=== PATIENT | male | born 1955 | race Two or more races ===

== ENCOUNTER 2019-08-16 16:07 | Inpatient (IN) | payer OTHER ==
[~2019-08-16] VITALS: Ht 172.7 cm; Wt 123.4 kg
[2019-08-16] MEDS ORDERED: METHYLPREDNISOLONE SOD SUCC 125 MG/2 ML VIAL IV STA ×2 (16:22→16:47)
[2019-08-16] MEDS: ALBUTEROL (0.083%) 2.5MG/3ML NEB HHN STA ×2 (16:40→17:19)
[2019-08-16] MEDS: IPRATROPIUM BROMIDE (0.02%) 0.5MG/2.5ML NEB HHN STA ×2 (16:40→17:19)
[2019-08-16 16:45] LABS: BG BASE EXCESS 0.1 mmol/L (-2.0-2.0); BG CARBOXYHEMOGLOBIN 0.3 % (0.5-1.5); BG DEOXYHEMOGLOBIN 2.2 % (0.0-5.0); BG HCO3 ACT 21.2 mmol/L (22.0-26.0); BG OXYGEN SATURATION 97.8 % (92.0-98.5); BG OXYHEMOGLOBIN 97.5 % (94.0-97.0); BG PCO2 25.8 mmHg (35.0-45.0); BG PH 7.532 (7.350-7.450); BG PO2 100.8 mmHg (75.0-100.0); BG SAMPLE SITE RIGHT BRACHIAL; BG TOTAL HEMOGLOBIN 14.5 g/dL (12.0-18.0); BG VENT MODE NASAL CANNULA
[2019-08-16] MEDS ORDERED: SODIUM CHLORIDE 0.9% 1000ML BAG (SEPSIS BOLUS) IV ONE (16:45)
[2019-08-16 16:51] LABS: HEMATOCRIT. 44.3 % (42.0-52.0); HEMOGLOBIN. 14.6 g/dL (14.0-18.0); MEAN CORPUSCULAR HEMOGLOBIN 32.3 pg (28.0-32.0); MEAN PLATELET VOLUME 8.8 fl (7.4-10.4); PLATELET 273 x1000/uL (130-400); RED BLOOD CELL COUNT 4.52 mill/uL (4.7-6.1); RED CELL DISTRIBUTION WIDTH 16.7 % (11.6-14.6)
[2019-08-16 16:57] LABS: CHLORIDE 107 mEq/L (98-107); PARTIAL THROMBOPLASTIN TIME 22.6 sec (23.4-31.0); PROTHROMBIN TIME 10.6 sec (9.6-11.0)
[2019-08-16] MEDS ORDERED: LEVOFLOXACIN 750MG PREMIX 150 ML IV ONE (17:00)
[2019-08-16] MEDS ORDERED: MAGNESIUM 2 G PREMIX 50 ML IV ONE (17:00)
[2019-08-16] MEDS ORDERED: DIPHENHYDRAMINE 50MG/ML VIAL IV ONE (17:00)
[2019-08-16 17:15] LABS: PLATELET ESTIMATE NORMAL
[2019-08-16 18:06] LABS: ETHANOL BLOOD < 10 mg/dL
[2019-08-17] MEDS: MORPHINE SULFATE 4 MG/ML CPJ (NOT FOR IM USE) IV PRN ×4 (01:35→21:03)
[2019-08-17] MEDS ORDERED: ONDANSETRON HCL 4MG/2ML INJ IV ONE (02:00)
[2019-08-17] MEDS: DIPHENHYDRAMINE 50MG/ML VIAL IV PRN ×4 (04:00→21:42)
[2019-08-17 12:00] VITALS: BP 153/104
[2019-08-17] MEDS ORDERED: ALPRAZOLAM 0.5 MG TABLET PO SCH (12:15)
[2019-08-17] MEDS ORDERED: IPRATROPIUM/ALBUTEROL 0.5-3(2.5)MG/3ML NEB HHN PRN (12:30)
[2019-08-17 13:00] VITALS: BP 153/101
[2019-08-17] MEDS: CLOPIDOGREL 75MG TABLET PO SCH (13:03)
[2019-08-17] MEDS: APIXABAN 5 MG TABLET PO SCH ×2 (13:03→20:43)
[2019-08-17] MEDS: METHYLPREDNISOLONE SOD SUCC 40 MG/ML VIAL IV SCH ×2 (13:58→20:39)
[2019-08-17] MEDS ORDERED: DULO30CA2 MT (14:13)
[2019-08-17] MEDS ORDERED: DILT180C66 MT (14:14)
[2019-08-17] MEDS ORDERED: ATOR20TA MT ×2 (14:14→14:20)
[2019-08-17] MEDS ORDERED: OMEP40CA12 MT (14:16)
[2019-08-17] MEDS ORDERED: APIX5TAB MT (14:17)
[2019-08-17] MEDS ORDERED: FERR325T30 PO (14:17)
[2019-08-17] MEDS ORDERED: NITR0.4T SL (14:18)
[2019-08-17] MEDS ORDERED: CLOP75TA4 MT (14:19)
[2019-08-17] MEDS ORDERED: MULT-1203 PO (14:19)
[2019-08-17] MEDS ORDERED: LOSA50TA3 MT (14:21)
[2019-08-17] MEDS ORDERED: DEXTROSE 50% WATER 50ML SYRINGE IV PRN (14:30)
[2019-08-17] MEDS ORDERED: DOCUSATE SODIUM 100MG CAPSULE PO PRN (14:30)
[2019-08-17 16:00] VITALS: BP 124/83
[2019-08-17] MEDS: IPRATROPIUM/ALBUTEROL 0.5-3(2.5)MG/3ML NEB HHN SCH (16:55)
[2019-08-17] MEDS: BLOOD SUGAR DIAGNOSTIC STRIP TEST SCH ×2 (17:20→20:43)
[2019-08-17] MEDS: ONDANSETRON HCL 4MG/2ML INJ IV PRN (18:18)
[2019-08-17] MEDS: INSULIN LISPRO 100 UNITS/ML SUBCUT SCH ×2 (18:22→20:40)
[2019-08-17 20:00] VITALS: BP 124/79
[2019-08-17] MEDS: ALPRAZOLAM 0.5 MG TABLET PO SCH (20:44)
[2019-08-17] MEDS ORDERED: INSULIN NPH (HUMULIN-N) 100 UNITS/ML 3ML VIAL SUBCUT ONE (20:45)
[2019-08-17] MEDS ORDERED: INSULIN LISPRO 100 UNITS/ML SUBCUT NR (21:00)
[2019-08-17] MEDS: INSULIN GLARGINE UD 100 UNITS/ML SYR SUBCUT SCH (21:42)
[2019-08-18] VITALS: BP_SYST 102; BP_SYST 128; BP_DIAS 47; BP_DIAS 75
[2019-08-18] MEDS: IPRATROPIUM/ALBUTEROL 0.5-3(2.5)MG/3ML NEB HHN SCH ×4 (01:11→14:06)
[2019-08-18] MEDS: MORPHINE SULFATE 4 MG/ML CPJ (NOT FOR IM USE) IV PRN ×3 (03:15→17:21)
[2019-08-18 04:01] VITALS: BP 122/72
[2019-08-18] MEDS: METHYLPREDNISOLONE SOD SUCC 40 MG/ML VIAL IV SCH ×3 (05:21→21:25)
[2019-08-18] MEDS: DIPHENHYDRAMINE 50MG/ML VIAL IV PRN ×3 (05:22→21:56)
[2019-08-18] MEDS: ALPRAZOLAM 0.5 MG TABLET PO SCH ×3 (05:22→21:23)
[2019-08-18 06:05] LABS: HEMATOCRIT 36.7 % (42.0-52.0); HEMOGLOBIN 12.2 g/dL (14.0-18.0); MEAN CORPUSCULAR HEMOGLOBIN 32.6 pg (28.0-32.0); MEAN CORPUSCULAR VOLUME 97.6 fL (80.0-94.0); PLATELET 247 x1000/uL (130-400); RED BLOOD CELL COUNT 3.76 mill/uL (4.7-6.1); RED CELL DISTRIBUTION WIDTH 16.5 % (11.6-14.6)
[2019-08-18] MEDS: BLOOD SUGAR DIAGNOSTIC STRIP TEST SCH ×4 (06:09→21:12)
[2019-08-18 06:49] LABS: CHLORIDE 111 mEq/L (98-107)
[2019-08-18 08:04] VITALS: BP 132/82
[2019-08-18] MEDS: APIXABAN 5 MG TABLET PO SCH ×2 (08:37→17:39)
[2019-08-18] MEDS: AMLODIPINE 5MG TABLET PO SCH (08:37)
[2019-08-18] MEDS: CLOPIDOGREL 75MG TABLET PO SCH (08:37)
[2019-08-18] MEDS: INSULIN LISPRO 100 UNITS/ML SUBCUT SCH ×4 (08:40→21:16)
[2019-08-18] MEDS: INSULIN GLARGINE UD 100 UNITS/ML SYR SUBCUT SCH ×2 (09:51→21:29)
[2019-08-18] MEDS: ONDANSETRON HCL 4MG/2ML INJ IV PRN ×2 (11:03→17:50)
[2019-08-18 11:58] VITALS: BP 130/82
[2019-08-18 16:29] VITALS: BP 122/76
[2019-08-18 20:00] VITALS: BP 105/76
[2019-08-19] MEDS: ONDANSETRON HCL 4MG/2ML INJ IV PRN ×4 (00:08→18:22)
[2019-08-19] MEDS: MORPHINE SULFATE 4 MG/ML CPJ (NOT FOR IM USE) IV PRN ×4 (00:08→18:22)
[2019-08-19 00:45] VITALS: BP 136/85
[2019-08-19 04:00] VITALS: BP 122/83
[2019-08-19] MEDS: DIPHENHYDRAMINE 50MG/ML VIAL IV PRN ×3 (04:50→22:12)
[2019-08-19] MEDS: METHYLPREDNISOLONE SOD SUCC 40 MG/ML VIAL IV SCH ×3 (06:38→21:22)
[2019-08-19] MEDS: ALPRAZOLAM 0.5 MG TABLET PO SCH ×3 (06:38→21:23)
[2019-08-19] MEDS: BLOOD SUGAR DIAGNOSTIC STRIP TEST SCH ×4 (07:31→21:22)
[2019-08-19] MEDS: APIXABAN 5 MG TABLET PO SCH ×2 (08:37→17:40)
[2019-08-19] MEDS: AMLODIPINE 5MG TABLET PO SCH (08:37)
[2019-08-19] MEDS: CLOPIDOGREL 75MG TABLET PO SCH (08:37)
[2019-08-19] MEDS: INSULIN LISPRO 100 UNITS/ML SUBCUT SCH ×4 (08:48→21:25)
[2019-08-19] MEDS: IPRATROPIUM/ALBUTEROL 0.5-3(2.5)MG/3ML NEB HHN SCH ×4 (09:03→23:21)
[2019-08-19] MEDS: INSULIN GLARGINE UD 100 UNITS/ML SYR SUBCUT SCH ×2 (11:01→21:25)
[2019-08-19 12:00] VITALS: BP 125/74
[2019-08-19 16:00] VITALS: BP 124/76
[2019-08-19 20:41] VITALS: BP 137/86
[2019-08-20 00:32] VITALS: BP 123/75
[2019-08-20] MEDS: ONDANSETRON HCL 4MG/2ML INJ IV PRN ×4 (01:13→21:47)
[2019-08-20] MEDS: MORPHINE SULFATE 4 MG/ML CPJ (NOT FOR IM USE) IV PRN ×4 (01:32→21:47)
[2019-08-20 04:00] VITALS: BP 143/73
[2019-08-20] MEDS: DIPHENHYDRAMINE 50MG/ML VIAL IV PRN ×3 (04:16→17:13)
[2019-08-20] MEDS: IPRATROPIUM/ALBUTEROL 0.5-3(2.5)MG/3ML NEB HHN SCH ×6 (04:35→23:44)
[2019-08-20] MEDS: METHYLPREDNISOLONE SOD SUCC 40 MG/ML VIAL IV SCH ×3 (06:08→21:47)
[2019-08-20] MEDS: ALPRAZOLAM 0.5 MG TABLET PO SCH ×3 (06:08→21:47)
[2019-08-20] MEDS: BLOOD SUGAR DIAGNOSTIC STRIP TEST SCH ×4 (06:26→20:44)
[2019-08-20] MEDS: INSULIN LISPRO 100 UNITS/ML SUBCUT SCH ×4 (06:53→21:46)
[2019-08-20 07:59] VITALS: BP 145/88
[2019-08-20] MEDS: APIXABAN 5 MG TABLET PO SCH ×2 (08:21→17:13)
[2019-08-20] MEDS: AMLODIPINE 5MG TABLET PO SCH (08:21)
[2019-08-20] MEDS: CLOPIDOGREL 75MG TABLET PO SCH (08:21)
[2019-08-20] MEDS: INSULIN GLARGINE UD 100 UNITS/ML SYR SUBCUT SCH ×2 (10:02→22:21)
[2019-08-20 12:00] VITALS: BP 152/93
[2019-08-20 16:00] VITALS: BP 133/86
[2019-08-20] MEDS: GUAIFENESIN 200MG/10ML SUGAR FREE UDC PO PRN (17:13)
[2019-08-20 20:21] VITALS: BP 122/86
[2019-08-21 00:10] VITALS: BP 148/75
[2019-08-21] MEDS: DIPHENHYDRAMINE 50MG/ML VIAL IV PRN ×3 (01:52→18:11)
[2019-08-21 04:00] VITALS: BP 135/83
[2019-08-21] MEDS: MORPHINE SULFATE 4 MG/ML CPJ (NOT FOR IM USE) IV PRN ×3 (05:11→17:26)
[2019-08-21] MEDS: ONDANSETRON HCL 4MG/2ML INJ IV PRN ×3 (05:11→17:26)
[2019-08-21] MEDS: METHYLPREDNISOLONE SOD SUCC 40 MG/ML VIAL IV SCH ×2 (05:11→13:56)
[2019-08-21] MEDS: ALPRAZOLAM 0.5 MG TABLET PO SCH ×3 (05:11→21:43)
[2019-08-21] MEDS: BLOOD SUGAR DIAGNOSTIC STRIP TEST SCH ×4 (06:46→20:48)
[2019-08-21] MEDS: IPRATROPIUM/ALBUTEROL 0.5-3(2.5)MG/3ML NEB HHN SCH ×3 (07:57→20:09)
[2019-08-21 08:00] VITALS: BP 141/89
[2019-08-21] MEDS: AMLODIPINE 5MG TABLET PO SCH (09:13)
[2019-08-21] MEDS: GUAIFENESIN 200MG/10ML SUGAR FREE UDC PO PRN ×2 (09:13→17:26)
[2019-08-21] MEDS: APIXABAN 5 MG TABLET PO SCH ×2 (09:14→17:25)
[2019-08-21] MEDS: CLOPIDOGREL 75MG TABLET PO SCH (09:14)
[2019-08-21] MEDS: INSULIN LISPRO 100 UNITS/ML SUBCUT SCH ×4 (09:18→21:40)
[2019-08-21] MEDS: INSULIN GLARGINE UD 100 UNITS/ML SYR SUBCUT SCH ×2 (10:19→21:41)
[2019-08-21 12:00] VITALS: BP 127/86
[2019-08-21 12:52] LABS: HEMOGLOBIN 13.5 g/dL (14.0-18.0); MEAN CORPUSCULAR HEMOGLOBIN 32.3 pg (28.0-32.0); MEAN CORPUSCULAR VOLUME 98.2 fL (80.0-94.0); PLATELET 213 x1000/uL (130-400); RED BLOOD CELL COUNT 4.18 mill/uL (4.7-6.1); RED CELL DISTRIBUTION WIDTH 16.5 % (11.6-14.6)
[2019-08-21 13:26] LABS: CHLORIDE 105 mEq/L (98-107)
[2019-08-21 16:00] VITALS: BP 100/72
[2019-08-21] MEDS ORDERED: HYDROCODONE/ACETAMINOPHEN 5/325MG TABLET PO PRN (20:30)
[2019-08-21 20:47] VITALS: BP 134/87
[2019-08-21 22:41] LABS: *AMPHETAMINES SCREEN URINE NEGATIVE (NEGATIVE)
[2019-08-21 22:42] LABS: *BARBITURATES SCREEN URINE NEGATIVE (NEGATIVE); *BENZODIAZEPINES SCREEN URINE PRESUMTIVE POSITIVE (NEGATIVE); *COCAINE SCREEN URINE NEGATIVE (NEGATIVE); CANNABINOID URINE SCREEN NEGATIVE (NEGATIVE); METHADONE URINE SCREEN NEGATIVE (NEGATIVE); OPIATES URINE SCREEN PRESUMTIVE POSITIVE (NEGATIVE); PHENCYCLIDINE URINE SCREEN NEGATIVE (NEGATIVE)
[2019-08-22] VITALS (7 sets, daily range): BP systolic 117–154; BP diastolic 74–90
[2019-08-22] MEDS: BLOOD SUGAR DIAGNOSTIC STRIP TEST SCH ×6 (00:16→20:20)
[2019-08-22] MEDS: INSULIN LISPRO 100 UNITS/ML SUBCUT SCH ×6 (00:26→20:25)
[2019-08-22] MEDS: ONDANSETRON HCL 4MG/2ML INJ IV PRN ×4 (00:27→20:23)
[2019-08-22] MEDS: MORPHINE SULFATE 4 MG/ML CPJ (NOT FOR IM USE) IV PRN ×5 (00:28→20:24)
[2019-08-22] MEDS: IPRATROPIUM/ALBUTEROL 0.5-3(2.5)MG/3ML NEB HHN SCH ×3 (01:33→15:43)
[2019-08-22] MEDS: METHYLPREDNISOLONE SOD SUCC 40 MG/ML VIAL IV SCH ×2 (02:51→13:51)
[2019-08-22] MEDS: GUAIFENESIN 200MG/10ML SUGAR FREE UDC PO PRN ×2 (03:06→22:07)
[2019-08-22] MEDS: DIPHENHYDRAMINE 50MG/ML VIAL IV PRN ×3 (03:06→22:07)
[2019-08-22] MEDS: ALPRAZOLAM 0.5 MG TABLET PO SCH ×3 (06:14→22:07)
[2019-08-22 07:16] LABS: HEMATOCRIT 40.9 % (42.0-52.0); HEMOGLOBIN 13.7 g/dL (14.0-18.0); MEAN CORPUSCULAR HEMOGLOBIN 32.6 pg (28.0-32.0); MEAN CORPUSCULAR VOLUME 97.1 fL (80.0-94.0); PLATELET 206 x1000/uL (130-400); RED BLOOD CELL COUNT 4.22 mill/uL (4.7-6.1); RED CELL DISTRIBUTION WIDTH 16.7 % (11.6-14.6)
[2019-08-22 07:33] LABS: CHLORIDE 105 mEq/L (98-107)
[2019-08-22] MEDS: APIXABAN 5 MG TABLET PO SCH ×2 (08:09→17:13)
[2019-08-22] MEDS: CLOPIDOGREL 75MG TABLET PO SCH (08:11)
[2019-08-22] MEDS: AMLODIPINE 5MG TABLET PO SCH (08:12)
[2019-08-22] MEDS: INSULIN GLARGINE UD 100 UNITS/ML SYR SUBCUT SCH ×2 (09:55→22:05)
[2019-08-22] MEDS: CEFTRIAXONE 1,000 MG in DEXTROSE 5% WATER 50 ML IV SCH (15:47)
[2019-08-23] MEDS: BLOOD SUGAR DIAGNOSTIC STRIP TEST SCH ×5 (00:01→16:22)
[2019-08-23] MEDS: INSULIN LISPRO 100 UNITS/ML SUBCUT SCH ×6 (00:12→22:28)
[2019-08-23] MEDS ORDERED: VANCOMYCIN 2,000 MG in DEXT 5% WATER 500 ML IV SCH (02:00)
[2019-08-23] MEDS: METHYLPREDNISOLONE SOD SUCC 40 MG/ML VIAL IV SCH ×2 (02:47→13:16)
[2019-08-23 04:09] VITALS: BP 125/88
[2019-08-23] MEDS: MORPHINE SULFATE 4 MG/ML CPJ (NOT FOR IM USE) IV PRN ×4 (04:16→22:42)
[2019-08-23] MEDS: ONDANSETRON HCL 4MG/2ML INJ IV PRN ×2 (04:16→10:30)
[2019-08-23] MEDS: DIPHENHYDRAMINE 50MG/ML VIAL IV PRN ×3 (05:30→18:36)
[2019-08-23 08:10] VITALS: BP 145/91
[2019-08-23] MEDS: IPRATROPIUM/ALBUTEROL 0.5-3(2.5)MG/3ML NEB HHN SCH ×2 (08:10→21:35)
[2019-08-23] MEDS: AMLODIPINE 5MG TABLET PO SCH (08:38)
[2019-08-23] MEDS: APIXABAN 5 MG TABLET PO SCH ×2 (08:38→17:01)
[2019-08-23] MEDS: CLOPIDOGREL 75MG TABLET PO SCH (08:38)
[2019-08-23] MEDS: INSULIN GLARGINE UD 100 UNITS/ML SYR SUBCUT SCH ×2 (09:09→22:27)
[2019-08-23 11:59] VITALS: BP_SYST 116
[2019-08-23] MEDS ORDERED: ALPRAZOLAM 0.5 MG TABLET PO PRN (13:15)
[2019-08-23] MEDS: CEFTRIAXONE 1,000 MG in DEXTROSE 5% WATER 50 ML IV SCH (13:16)
[2019-08-23 16:00] VITALS: BP 136/94
[2019-08-23] MEDS: VANCOMYCIN 1250MG in DEXTROSE 5% WATER 250ML IV SCH (17:01)
[2019-08-23 20:43] VITALS: BP 124/80
[2019-08-23 21:25] LABS: HEMATOCRIT. 43.8 % (42.0-52.0); HEMOGLOBIN. 14.7 g/dL (14.0-18.0); MEAN CORPUSCULAR VOLUME 98.1 fL (80.0-94.0); MEAN PLATELET VOLUME 9.6 fl (7.4-10.4); PLATELET 202 x1000/uL (130-400); RED BLOOD CELL COUNT 4.46 mill/uL (4.7-6.1); RED CELL DISTRIBUTION WIDTH 16.7 % (11.6-14.6)
[2019-08-23 21:55] LABS: PLATELET ESTIMATE NORMAL
[2019-08-23 22:07] LABS: CHLORIDE 105 mEq/L (98-107)
[2019-08-24] VITALS (7 sets, daily range): BP systolic 121–140; BP diastolic 79–89
[2019-08-24] MEDS: ALPRAZOLAM 0.5 MG TABLET PO PRN ×3 (01:35→21:00)
[2019-08-24] MEDS: DIPHENHYDRAMINE 50MG/ML VIAL IV PRN ×4 (01:35→21:13)
[2019-08-24] MEDS: METHYLPREDNISOLONE SOD SUCC 40 MG/ML VIAL IV SCH ×2 (02:00→14:24)
[2019-08-24] MEDS: IPRATROPIUM/ALBUTEROL 0.5-3(2.5)MG/3ML NEB HHN SCH ×4 (02:51→21:00)
[2019-08-24] MEDS: BLOOD SUGAR DIAGNOSTIC STRIP TEST SCH ×5 (04:00→20:00)
[2019-08-24] MEDS: INSULIN LISPRO 100 UNITS/ML SUBCUT SCH ×5 (04:00→21:52)
[2019-08-24] MEDS: VANCOMYCIN 1250MG in DEXTROSE 5% WATER 250ML IV SCH (06:32)
[2019-08-24] MEDS: ONDANSETRON HCL 4MG/2ML INJ IV PRN ×2 (06:57→22:53)
[2019-08-24] MEDS: MORPHINE SULFATE 4 MG/ML CPJ (NOT FOR IM USE) IV PRN ×4 (08:05→21:00)
[2019-08-24] MEDS: CLOPIDOGREL 75MG TABLET PO SCH (08:42)
[2019-08-24] MEDS: AMLODIPINE 5MG TABLET PO SCH (08:43)
[2019-08-24] MEDS: APIXABAN 5 MG TABLET PO SCH ×2 (08:43→17:44)
[2019-08-24] MEDS: INSULIN GLARGINE UD 100 UNITS/ML SYR SUBCUT SCH (09:52)
[2019-08-24] MEDS ORDERED: CEFTRIAXONE 1 G PREMIX 50 ML IV SCH (14:00)
[2019-08-24 14:12] LABS: CHLORIDE 104 mEq/L (98-107)
[2019-08-24] MEDS ORDERED: VANCOMYCIN 1 G PREMIX 200 ML IV SCH (16:00)
[2019-09-14] MEDS ORDERED: MECL-115 PO (14:05)
[2019-09-14] MEDS ORDERED: DILT60TA35 PO (14:05)
== END 2019-08-24 23:25 | disposition short-term general hospital (02) | DRG 189 ==
LOC: ER 16:07 → 6WST 19:51 → EDBEDREQSVC 19:55 → EDBEDREQTM 19:55 → EDBEDREQ 19:55 → EDBEDREQSVC 08-17 09:19 → ENRESERV 08-17 11:06
PROVIDERS: ADMIT Internal Medicine; ATTEND Internal Medicine
PROC: 5A09357 Assistance with Respiratory Ventilation, Less than 24 Consecutive Hours, Continuous Positive Airway Pressure (ICD-10-PCS; principal; 2019-08-18)
DX: J96.20 Acute and chronic respiratory failure, unspecified whether with hypoxia or hypercapnia (principal); J45.901 Unspecified asthma with (acute) exacerbation; E66.2 Morbid (severe) obesity with alveolar hypoventilation; Z68.41 Body mass index [BMI] 40.0-44.9, adult; L03.119 Cellulitis of unspecified part of limb; R65.10 Systemic inflammatory response syndrome (SIRS) of non-infectious origin without acute organ dysfunction; K57.90 Diverticulosis of intestine, part unspecified, without perforation or abscess without bleeding; K64.9 Unspecified hemorrhoids; J44.9 Chronic obstructive pulmonary disease, unspecified; I25.10 Atherosclerotic heart disease of native coronary artery without angina pectoris; I10 Essential (primary) hypertension; E11.65 Type 2 diabetes mellitus with hyperglycemia; F41.9 Anxiety disorder, unspecified; G89.29 Other chronic pain; I25.2 Old myocardial infarction; Z95.5 Presence of coronary angioplasty implant and graft; Z79.01 Long term (current) use of anticoagulants; Z79.899 Other long term (current) drug therapy
CPT/HCPCS: 36415; 36600; 71045; 73700; 80048; 80053; 80202; 80305; 80320; 82375; 82805; 82962; 83605; 83880; 84484; 85025; 85027; 87804; 93005; 93923; 93970; 94640; 94644; 94660; 96365; 99291; J0696; J1200; J1815; J1956; J2270; J2405; J2920; J2930; J3370; J3475; J7030; J7060; G0480

== ENCOUNTER 2019-12-04 23:07 | Inpatient (IN) | payer OTHER ==
[~2019-12-04] VITALS: Ht 167.6 cm; Wt 121.1 kg
[~2019-12-04 23:07] MED LIST: APIX5TAB MT; ATOR20TA MT; CLOP75TA4 MT; DILT180C66 MT; DILT60TA35 PO; DULO30CA2 MT; FERR325T30 PO; MECL-115 PO; MULT-1203 PO; NITR0.4T SL; OMEP40CA12 MT
[2019-12-04] MEDS ORDERED: ONDANSETRON HCL 4MG/2ML INJ IV STA (23:46)
[2019-12-04] MEDS ORDERED: MORPHINE SULFATE 4 MG/ML CPJ (NOT FOR IM USE) IV STA (23:46)
[2019-12-05] MEDS ORDERED: NITROGLYCERIN OINT 1GM/INCH UDPKT TD ONE
[2019-12-05 00:09] LABS: BASOPHILS % 0.9 % (0.0-2.0); EOSINOPHILS % 3.2 % (0.0-5.0); HEMATOCRIT. 39.4 % (42.0-52.0); HEMOGLOBIN. 13.3 g/dL (14.0-18.0); LYMPHOCYTES % 35.8 % (20.0-50.0); MEAN CORPUSCULAR HEMOGLOBIN 31.2 pg (28.0-32.0); MEAN CORPUSCULAR VOLUME 92.4 fL (80.0-94.0); MONOCYTES % 4.5 % (2.0-8.0); NEUTROPHILS % 55.6 % (40.0-76.0); PLATELET 344 x1000/uL (130-400); RED BLOOD CELL COUNT 4.26 mill/uL (4.7-6.1); RED CELL DISTRIBUTION WIDTH 14.9 % (11.6-14.6)
[2019-12-05 00:14] LABS: CHLORIDE 106 mEq/L (98-107)
[2019-12-05 00:15] LABS: PROTHROMBIN TIME 10.6 sec (9.6-11.0)
[2019-12-05] MEDS ORDERED: MORPHINE SULFATE 4 MG/ML CPJ (NOT FOR IM USE) IV ONE (02:15)
[2019-12-05] MEDS ORDERED: ONDANSETRON HCL 4MG/2ML INJ IV ONE (02:15)
[2019-12-05] MEDS: MORPHINE SULFATE 2 MG/ML CPJ (NOT FOR IM USE) IV PRN ×5 (06:53→23:21)
[2019-12-05] MEDS: ONDANSETRON HCL 4MG/2ML INJ IV PRN ×4 (10:27→23:21)
[2019-12-05] MEDS ORDERED: CLONIDINE 0.1MG TABLET PO PRN (11:30)
[2019-12-05] MEDS ORDERED: NA PHOS,M-B/NA PHOS,DI-BA ENEMA 118ML PR PRN (11:30)
[2019-12-05] MEDS ORDERED: ACETAMINOPHEN 325MG TABLET PO PRN (11:30)
[2019-12-05] MEDS ORDERED: ACETAMINOPHEN 650MG SUPP PR PRN (11:30)
[2019-12-05] MEDS ORDERED: DOCUSATE SODIUM 100MG CAPSULE PO PRN (11:30)
[2019-12-05] MEDS ORDERED: GUAIFENESIN 200MG/10ML SUGAR FREE UDC PO PRN (11:30)
[2019-12-05] MEDS ORDERED: MAGNESIUM/ALUMINUM HYDROXIDE/SIMETHICONE 30ML UDC PO PRN (11:30)
[2019-12-05] MEDS ORDERED: DEXTROSE 50% WATER 50ML SYRINGE IV PRN (11:30)
[2019-12-05] MEDS ORDERED: ONDANSETRON HCL 4MG/2ML INJ IV PRN (11:30)
[2019-12-05] MEDS ORDERED: MECLIZINE 25MG TABLET PO PRN (11:30)
[2019-12-05] MEDS ORDERED: LORAZEPAM 2MG/ML CPJ IV PRN (11:30)
[2019-12-05] MEDS ORDERED: IPRATROPIUM/ALBUTEROL 0.5-3(2.5)MG/3ML NEB NEB PRN (11:30)
[2019-12-05] MEDS: BLOOD SUGAR DIAGNOSTIC STRIP TEST SCH ×2 (11:41→21:00)
[2019-12-05] MEDS: INSULIN LISPRO 100 UNITS/ML SUBCUT SCH ×2 (11:43→21:00)
[2019-12-05] MEDS ORDERED: METHYLPREDNISOLONE SOD SUCC 40 MG/ML VIAL IV SCH (12:00)
[2019-12-05] MEDS: DILTIAZEM HCL 60MG TABLET PO SCH (12:10)
[2019-12-05] MEDS: FERROUS SULFATE 325MG TABLET PO SCH (12:10)
[2019-12-05 13:35] LABS: CREATINE KINASE MB FRACTION 3.2 ng/mL (0.5-3.6)
[2019-12-05] MEDS ORDERED: POTASSIUM CHLORIDE 20MEQ TABLET SR PO SCH (13:45)
[2019-12-05] MEDS ORDERED: APIXABAN 5 MG TABLET PO SCH (17:00)
[2019-12-05] MEDS: DIPHENHYDRAMINE 50MG/ML VIAL IV PRN ×2 (17:43→23:21)
[2019-12-05] MEDS ORDERED: ENOXAPARIN 80MG/0.8ML SYR SUBCUT SCH (18:00)
[2019-12-05 19:44] LABS: CLARITY URINE CLEAR (CLEAR); COLOR URINE YELLOW (YELLOW); KETONES URINE NEGATIVE (NEGATIVE); LEUKOCYTE ESTERASE URINE NEGATIVE (NEGATIVE); NITRITE URINE NEGATIVE (NEGATIVE); OCCULT BLOOD URINE NEGATIVE (NEGATIVE); PROTEIN URINE NEGATIVE (NEGATIVE); SPECIFIC GRAVITY URINE 1.014 (1.005-1.030); UROBILINOGEN URINE 0.2 E.U./dL (0.2-1.0)
[2019-12-05] MEDS: ATORVASTATIN CALCIUM 20MG TABLET PO SCH (21:15)
[2019-12-05] MEDS: CLOPIDOGREL 75MG TABLET PO SCH (21:15)
[2019-12-05 22:05] VITALS: BP 130/78
[2019-12-05 23:50] LABS: CREATINE KINASE 81 IU/L (39-308)
[2019-12-06] VITALS (16 sets, daily range): BP systolic 113–154; BP diastolic 55–96
[2019-12-06 00:05] LABS: CREATINE KINASE MB FRACTION 3.1 ng/mL (0.5-3.6)
[2019-12-06] MEDS: MORPHINE SULFATE 2 MG/ML CPJ (NOT FOR IM USE) IV PRN ×2 (05:24→09:55)
[2019-12-06] MEDS: DIPHENHYDRAMINE 50MG/ML VIAL IV PRN ×4 (05:44→22:04)
[2019-12-06] MEDS: ONDANSETRON HCL 4MG/2ML INJ IV PRN ×3 (05:44→22:04)
[2019-12-06] MEDS: OMEPRAZOLE 20MG CAPSULE EXTENDED RELEASE PO SCH (05:50)
[2019-12-06] MEDS ORDERED: SODIUM CHLORIDE 0.45% 1,000 ML IV SCH (06:00)
[2019-12-06] MEDS: DILTIAZEM HCL 60MG TABLET PO SCH ×4 (06:00→17:57)
[2019-12-06 06:56] LABS: BASOPHILS % 0.8 % (0.0-2.0); EOSINOPHILS % 5.6 % (0.0-5.0); HEMATOCRIT. 36.7 % (42.0-52.0); HEMOGLOBIN. 12.3 g/dL (14.0-18.0); LYMPHOCYTES % 34.5 % (20.0-50.0); MEAN CORPUSCULAR HEMOGLOBIN 31.1 pg (28.0-32.0); MEAN CORPUSCULAR VOLUME 92.4 fL (80.0-94.0); MEAN PLATELET VOLUME 8.1 fl (7.4-10.4); MONOCYTES % 3.2 % (2.0-8.0); NEUTROPHILS % 55.9 % (40.0-76.0); PLATELET 304 x1000/uL (130-400); RED BLOOD CELL COUNT 3.98 mill/uL (4.7-6.1); RED CELL DISTRIBUTION WIDTH 14.2 % (11.6-14.6)
[2019-12-06] MEDS: INSULIN LISPRO 100 UNITS/ML SUBCUT SCH ×4 (07:20→20:47)
[2019-12-06] MEDS: BLOOD SUGAR DIAGNOSTIC STRIP TEST SCH ×4 (07:26→20:46)
[2019-12-06] MEDS ORDERED: LIDOCAINE HCL 1% 20ML VIAL (Pyxis) INJ ONE (07:54)
[2019-12-06] MEDS ORDERED: FENTANYL CITRATE/PF 50MCG/ML 2ML VIAL ONE (07:55)
[2019-12-06] MEDS ORDERED: MIDAZOLAM HCL 2 MG/2 ML VIAL ONE ×2 (07:55→08:30)
[2019-12-06] MEDS ORDERED: IODIXANOL 320MG/ML 100 ML BOTTLE IV ONE (07:55)
[2019-12-06 08:08] LABS: CHLORIDE 106 mEq/L (98-107)
[2019-12-06 08:16] LABS: LDL CHOLESTEROL 64 mg/dL (5-100)
[2019-12-06 08:17] LABS: HDL CHOLESTEROL 35 mg/dL (40-59)
[2019-12-06 08:18] LABS: T4 FREE 0.91 ng/dL (0.76-1.46)
[2019-12-06] MEDS ORDERED: ATROPINE SULFATE 1MG/10ML SYR IV PRN (08:45)
[2019-12-06] MEDS ORDERED: ACETAMINOPHEN 325MG TABLET PO PRN (08:45)
[2019-12-06] MEDS ORDERED: ASPIRIN 81MG EC TABLET PO SCH (09:00)
[2019-12-06] MEDS: SODIUM CHLORIDE 0.45% 1,000 ML IV SCH ×2 (09:43→16:45)
[2019-12-06] MEDS: FERROUS SULFATE 325MG TABLET PO SCH ×3 (09:54→17:22)
[2019-12-06] MEDS: DULOXETINE HCL 30MG DR CAPSULE PO SCH (09:54)
[2019-12-06] MEDS: CLOPIDOGREL 75MG TABLET PO SCH ×2 (09:54→17:22)
[2019-12-06] MEDS ORDERED: METHYLPREDNISOLONE SOD SUCC 40 MG/ML VIAL IV NR (12:45)
[2019-12-06] MEDS: BUDESONIDE 0.5MG/2ML NEB HHN SCH (13:15)
[2019-12-06] MEDS: IPRATROPIUM/ALBUTEROL 0.5-3(2.5)MG/3ML NEB NEB SCH (13:15)
[2019-12-06] MEDS: APIXABAN 5 MG TABLET PO SCH (17:23)
[2019-12-06] MEDS: HYDROCODONE/ACETAMINOPHEN 5/325MG TABLET PO PRN (17:56)
[2019-12-06] MEDS: ATORVASTATIN CALCIUM 20MG TABLET PO SCH (20:46)
[2019-12-07] VITALS (8 sets, daily range): BP systolic 105–137; BP diastolic 51–79
[2019-12-07] MEDS: SODIUM CHLORIDE 0.45% 1,000 ML IV SCH ×2 (00:31→08:45)
[2019-12-07] MEDS: DILTIAZEM HCL 60MG TABLET PO SCH ×3 (00:31→11:45)
[2019-12-07] MEDS: HYDROCODONE/ACETAMINOPHEN 5/325MG TABLET PO PRN ×2 (02:45→09:06)
[2019-12-07] MEDS: BLOOD SUGAR DIAGNOSTIC STRIP TEST SCH ×2 (05:59→11:33)
[2019-12-07] MEDS: OMEPRAZOLE 20MG CAPSULE EXTENDED RELEASE PO SCH (05:59)
[2019-12-07] MEDS: INSULIN LISPRO 100 UNITS/ML SUBCUT SCH ×2 (06:23→11:33)
[2019-12-07 06:43] LABS: BASOPHILS % 0.2 % (0.0-2.0); HEMOGLOBIN. 12.3 g/dL (14.0-18.0); LYMPHOCYTES % 28.7 % (20.0-50.0); MEAN CORPUSCULAR HEMOGLOBIN 30.3 pg (28.0-32.0); MEAN CORPUSCULAR VOLUME 91.6 fL (80.0-94.0); MEAN PLATELET VOLUME 8.5 fl (7.4-10.4); MONOCYTES % 3.3 % (2.0-8.0); NEUTROPHILS % 67.8 % (40.0-76.0); PLATELET 339 x1000/uL (130-400); RED BLOOD CELL COUNT 4.04 mill/uL (4.7-6.1); RED CELL DISTRIBUTION WIDTH 14.3 % (11.6-14.6)
[2019-12-07 06:53] LABS: CHLORIDE 107 mEq/L (98-107)
[2019-12-07] MEDS: FERROUS SULFATE 325MG TABLET PO SCH ×2 (07:20→11:45)
[2019-12-07] MEDS: APIXABAN 5 MG TABLET PO SCH (09:05)
[2019-12-07] MEDS: CLOPIDOGREL 75MG TABLET PO SCH (09:05)
[2019-12-07] MEDS: DIPHENHYDRAMINE 50MG/ML VIAL IV PRN (09:05)
[2019-12-07] MEDS: DULOXETINE HCL 30MG DR CAPSULE PO SCH (09:05)
[2019-12-07] MEDS: BUDESONIDE 0.5MG/2ML NEB HHN SCH (09:45)
[2019-12-07] MEDS: IPRATROPIUM/ALBUTEROL 0.5-3(2.5)MG/3ML NEB NEB SCH (09:46)
== END 2019-12-07 14:14 | disposition home or self-care (01) | DRG 287 ==
LOC: ER 23:07 → MICUSO 12-05 01:24 → EDBEDREQ 12-05 01:35 → EDBEDREQTM 12-05 01:35 → EDBEDREQDT 12-05 01:35 → MICUSO 12-05 17:38 → 3WST 12-05 21:27
PROVIDERS: ADMIT Internal Medicine; ATTEND Internal Medicine
PROC: B2111ZZ Fluoroscopy of Multiple Coronary Arteries using Low Osmolar Contrast (ICD-10-PCS; principal; 2019-12-06)
PROC: 4A023N7 Measurement of Cardiac Sampling and Pressure, Left Heart, Percutaneous Approach (ICD-10-PCS; 2019-12-06)
PROC: B2151ZZ Fluoroscopy of Left Heart using Low Osmolar Contrast (ICD-10-PCS; 2019-12-06)
DX: I25.10 Atherosclerotic heart disease of native coronary artery without angina pectoris (principal); J45.901 Unspecified asthma with (acute) exacerbation; E66.2 Morbid (severe) obesity with alveolar hypoventilation; I48.92 Unspecified atrial flutter; Z68.41 Body mass index [BMI] 40.0-44.9, adult; R07.9 Chest pain, unspecified; I10 Essential (primary) hypertension; I25.9 Chronic ischemic heart disease, unspecified; K57.90 Diverticulosis of intestine, part unspecified, without perforation or abscess without bleeding; G89.29 Other chronic pain; D64.9 Anemia, unspecified; I48.0 Paroxysmal atrial fibrillation; E11.65 Type 2 diabetes mellitus with hyperglycemia; M54.9 Dorsalgia, unspecified; E78.5 Hyperlipidemia, unspecified; F41.9 Anxiety disorder, unspecified; I25.2 Old myocardial infarction; Z88.6 Allergy status to analgesic agent; Z95.5 Presence of coronary angioplasty implant and graft; Z79.899 Other long term (current) drug therapy; Z90.49 Acquired absence of other specified parts of digestive tract; Z86.74 Personal history of sudden cardiac arrest; Z98.1 Arthrodesis status; Z03.818 Encounter for observation for suspected exposure to other biological agents ruled out
CPT/HCPCS: 36415; 71045; 80048; 80053; 80061; 81003; 82550; 82553; 82962; 83036; 83880; 84439; 84443; 84484; 85025; 93005; 93458; 99285; C1769; C1893; J1200; J1644; J1815; J2250; J2270; J2405; J2920; J3010; J3490; J7626; Q9967; U0003-CS